=== PATIENT | female | born 2000 | race African-American/Black ===

== ENCOUNTER → 2021-05-15 | Outpatient (CLI) | payer OTHER ==
--- NOTE | 2021-05-15 12:18 | RAD ---
EXAM: Pelvic sonogram. HISTORY: Irregular menses. TECHNIQUE: Transabdominal and transvaginal sonographic imaging of the pelvis was performed. COMPARISON: None. FINDINGS: The uterus measures 8.1 x 5.7 x 5.3 cm. The endometrial stripe measures 1.1 cm in thickness . The ovaries are normal in size and demonstrate normal blood flow. There is a round isoechoic nodule with internal blood flow within the right ovary measuring 8 mm. There is trace pelvic free fluid. Th ere are prominent bilateral adnexal vessels. IMPRESSION: 1. Prominent endometrial stripe. This remains within normal limits and is likely related to the phase the patient's menstrual cycle. 2. Prominent pelvic vessels. This can be physiologic or associated with pelvic congestion. 3. Trace is nonobstructive pelvic free fluid. 4. 8 mm nodule within the right ovary which appears to demonstrate internal blood flow. This may be d ue to vascular projections into a complicated cyst cavity or solid lesion such as a fibroma. Sonograp hic follow-up in 3 months is recommended. Electronically signed by: Izabela Babin MD (05/15/2021 12:15 PM) [id number]
== END ==
LOC: US 10:54
PROVIDERS: ATTEND Obstetrics & Gynecology
DX: N92.6 Irregular menstruation, unspecified (principal); N83.8 Other noninflammatory disorders of ovary, fallopian tube and broad ligament
CPT/HCPCS: 76830; 76856